=== PATIENT | male | born 1995 | race Two or more races ===

== ENCOUNTER 2018-02-17 21:50 | Emergency (ER) | payer MEDICAID ==
[~2018-02-17] VITALS: Ht 172.7 cm; Wt 63.5 kg
[2018-02-17] MEDS ORDERED: IBUP-1985 PO (22:44)
[2018-02-17 22:52] VITALS: BP 118/61
== END 2018-02-17 22:54 | disposition home or self-care (01) ==
LOC: ER 21:50
DX: M79.672 Pain in left foot (principal)
CPT/HCPCS: 73630; 99284